=== PATIENT | female | born 1950 | race Asian ===

== ENCOUNTER 2021-10-02 07:23 | Day surgery (SDC) | payer MEDICARE ==
[~2021-10-02] VITALS: Ht 158 cm; Wt 76.0 kg
[~2021-10-02 07:23] MED LIST: CIPRO500 MG PO; LEVOTHYROXINE50 MCG PO; LISINOPRIL20 MG PO; NAPROXEN500 MG PO; POTASSIUM99 M3 PO; PRENATAL FORMU1 EACH PO; VITAMIN D3 COM1 EACH PO
--- NOTE | 2021-10-02 13:49 | NUR ---
PT TO D/C HOME ON WITH SPOUSE. SHE HAS A RW. SHE REQUESTS [facility] OUTPT THERAPY. FIRST APPT IS 10/04/21 @ 2:45 P.M. CHOICE FORM SIGNED AND COPY GIVEN.
--- NOTE | 2021-10-03 03:14 | NUR ---
patient ambulated length of hallway using walker and stand-by assist x1, anahi well.
[2021-10-03 06:41] LABS: BASOPHIL 0.2 % (0-2); EOSINOPHIL 0 % (0-7); HCT 32.4 % (37.0-47.0); HGB 10.7 g/dl (12.5-16.0); LYMPHOCYTE 12.2 % (15-48); MCV 90.8 fL (78.0-100.0); MONOCYTE 5.7 % (0-12); NEUTROPHIL 81.5 % (41-80); NRBC 0; PLT 198 K/uL (150-400); RBC 3.57 M/uL (4.20-5.40); RDW 12.5 % (11.5-14.0); WBC 11.1 K/uL (4.0-10.5)
[2021-10-03 07:04] LABS: BUN/CREAT RATIO (CALC) 22.4 RATIO; CREATININE 0.67 mg/dL (0.51-0.95); POTASSIUM 4.8 mmol/L (3.5-5.1)
[2021-10-03] MEDS ORDERED: XARELTO10 MG PO (08:50)
[2021-10-03] MEDS ORDERED: OXYCODONE-ACET1 EAC1 PO (08:50)
[2021-10-03] MEDS ORDERED: FEOSOL325 MG PO (08:50)
== END 2021-10-03 11:00 | disposition home or self-care (01) ==
LOC: FAS 07:23 → FMS 12:26 → FAS 10-03 11:00
PROVIDERS: Legal Medicine
DX: M17.11 Unilateral primary osteoarthritis, right knee (principal); M21.161 Varus deformity, not elsewhere classified, right knee; M25.761 Osteophyte, right knee; M67.261 Synovial hypertrophy, not elsewhere classified, right lower leg; I10 Essential (primary) hypertension; E03.9 Hypothyroidism, unspecified
CPT/HCPCS: 36415; 73560; 80048; 85025; 86850; 86900; 86901; 94010; 94760; 97110; 97162; 97166; 97530-GP; C1713; C1776; J0171; J0697; J1100; J1170; J1885; J2250; J2270; J2405; J2704; J2795; J3010; J7120